=== PATIENT | male | born 1975 | race Caucasian/White ===

== ENCOUNTER → 2017-01-07 | Outpatient (CLI) | payer OTHER ==
[2017-01-07 17:25] LABS: Anion Gap 8 mmol/L; Blood Urea Nitrogen 41 mg/dL (9-20); Calcium 9.8 mg/dL (8.4-10.2); Carbon Dioxide 25 mmol/L (22-30); Chloride 106 mmol/L (98-107); Glucose 89 mg/dL (74-99); Non-African American GFR(MDRD) 52 (>60 ml/min/1.73 sqM); Potassium 4.2 mmol/L (3.5-5.1); Sodium 139 mmol/L (137-145)
== END ==
LOC: LABWHC1 16:42
PROVIDERS: ATTEND Internal Medicine Nephrology
DX: N18.3 Chronic kidney disease, stage 3 (moderate) (principal)
CPT/HCPCS: 36415; 80048

== ENCOUNTER → 2017-03-27 | Outpatient (CLI) | payer OTHER ==
[2017-03-27 08:33] LABS: Basophils % (A) 1 %; CH 30.6; Eosinophils # (A) 0.2 k/uL (0-0.7); Eosinophils % (A) 3 %; HCT 40.3 % (39.0-53.0); HDW 2.83; HGB 14.5 gm/dL (13.0-17.5); Luc # (Auto) 0.14; Luc % (Auto) 3; Lymphocytes # (A) 1.5 k/uL (1.0-4.8); Lymphocytes % (A) 29 %; MCH 31.7 pg (25.0-35.0); MCHC 36.1 g/dL (31.0-37.0); MCV 87.9 fL (80.0-100.0); Mean Platelet Volume 7.5; Monocytes # (A) 0.3 k/uL (0-1.0); Monocytes % (A) 6 %; Neutrophils # (A) 3.1 k/uL (1.3-7.7); Neutrophils % (A) 59 %; RBC 4.59 m/uL (4.30-5.90); RDW 13.9 % (11.5-15.5); WBC 5.2 k/uL (3.8-10.6); WBC (Perox) 5.57
== END | disposition home or self-care (01) ==
LOC: LABWHC1 08:02
PROVIDERS: ATTEND Internal Medicine Nephrology
DX: N18.3 Chronic kidney disease, stage 3 (moderate) (principal)
CPT/HCPCS: 36415; 85025

== ENCOUNTER → 2017-04-09 | Outpatient (CLI) | payer OTHER ==
[2017-04-09 08:37] LABS: Basophils % (A) 1 %; CH 31.2; CHCM 35.7; Eosinophils # (A) 0.1 k/uL (0-0.7); Eosinophils % (A) 3 %; HCT 41.8 % (39.0-53.0); HDW 2.79; HGB 14.6 gm/dL (13.0-17.5); Luc # (Auto) 0.09; Luc % (Auto) 2; Lymphocytes # (A) 1.4 k/uL (1.0-4.8); Lymphocytes % (A) 30 %; MCH 30.7 pg (25.0-35.0); MCV 87.9 fL (80.0-100.0); Mean Platelet Volume 7.3; Monocytes # (A) 0.4 k/uL (0-1.0); Monocytes % (A) 9 %; Neutrophils # (A) 2.6 k/uL (1.3-7.7); Neutrophils % (A) 56 %; RBC 4.76 m/uL (4.30-5.90); RDW 13.8 % (11.5-15.5); WBC 4.5 k/uL (3.8-10.6); WBC (Perox) 4.74
[2017-04-09 08:51] LABS: Appearance,Urine Clear (Clear); Bilirubin,Urine Negative (Negative); Calcium 9.7 mg/dL (8.4-10.2); Glucose,Urine (UA) Negative (Negative); Ketones,Urine Negative (Negative); Leukocyte Esterase,Urine Negative (Negative); Magnesium 1.6 mg/dL (1.6-2.3); Mucus,Urine Rare /hpf; Nitrite,Urine Negative (Negative); PH, Urine 5.5 (5.0-8.0); Particle Count 4158; Potassium 4.4 mmol/L (3.5-5.1); Protein,Urine 2+ (Negative); Specific Gravity,Urine 1.017 (1.001-1.035); Squamous Epithelial Cell,Urine <1 /hpf (0-4); UA Billing (MACRO vs. MICRO) MICRO; Uric Acid 6.4 mg/dL (3.5-8.5); Urobilinogen,Urine <2.0 mg/dL (<2.0); WBC,Urine 1 /hpf (0-5)
== END | disposition home or self-care (01) ==
LOC: LABWHC1 07:54
PROVIDERS: ATTEND Internal Medicine Nephrology
DX: N18.3 Chronic kidney disease, stage 3 (moderate) (principal); N05.1 Unspecified nephritic syndrome with focal and segmental glomerular lesions; R80.9 Proteinuria, unspecified; E78.5 Hyperlipidemia, unspecified
CPT/HCPCS: 36415; 80048; 80061; 80158; 81001; 81050; 83735; 84156; 84550; 85025

== ENCOUNTER → 2017-06-09 | Outpatient (CLI) | payer OTHER ==
[2017-06-09 07:44] LABS: Basophils # (A) 0.1 k/uL (0-0.2); Basophils % (A) 1 %; CH 31.2; Eosinophils # (A) 0.1 k/uL (0-0.7); Eosinophils % (A) 2 %; HCT 44.1 % (39.0-53.0); HGB 14.7 gm/dL (13.0-17.5); Luc # (Auto) 0.11; Luc % (Auto) 2; Lymphocytes # (A) 1.3 k/uL (1.0-4.8); Lymphocytes % (A) 21 %; MCH 30.8 pg (25.0-35.0); MCHC 33.4 g/dL (31.0-37.0); MCV 92.1 fL (80.0-100.0); Mean Platelet Volume 7.3; Monocytes # (A) 0.4 k/uL (0-1.0); Monocytes % (A) 7 %; Neutrophils # (A) 4.3 k/uL (1.3-7.7); Neutrophils % (A) 68 %; RBC 4.79 m/uL (4.30-5.90); WBC 6.2 k/uL (3.8-10.6); WBC (Perox) 6.69
[2017-06-09 07:55] LABS: Appearance,Urine Clear (Clear); Bilirubin,Urine Negative (Negative); Glucose,Urine (UA) Negative (Negative); Ketones,Urine Negative (Negative); Leukocyte Esterase,Urine Negative (Negative); Mucus,Urine Rare /hpf; Nitrite,Urine Negative (Negative); PH, Urine 5.5 (5.0-8.0); Particle Count 2017; Protein,Urine 2+ (Negative); Specific Gravity,Urine 1.017 (1.001-1.035); UA Billing (MACRO vs. MICRO) MICRO; Urobilinogen,Urine <2.0 mg/dL (<2.0); WBC,Urine 1 /hpf (0-5)
[2017-06-09 08:24] LABS: Calcium 9.7 mg/dL (8.4-10.2); Magnesium 1.6 mg/dL (1.6-2.3); Potassium 4.6 mmol/L (3.5-5.1); Uric Acid 5.5 mg/dL (3.5-8.5)
[2017-06-09 16:04] LABS: 24-hr Urine Specific Gravity 1.02 (1.001-1.035)
== END | disposition home or self-care (01) ==
LOC: LABWHC1 06:38
PROVIDERS: ATTEND Nurse Practitioner Family
DX: N18.3 Chronic kidney disease, stage 3 (moderate) (principal); N64.9 Disorder of breast, unspecified; M10.9 Gout, unspecified; N39.0 Urinary tract infection, site not specified; R80.9 Proteinuria, unspecified
CPT/HCPCS: 36415; 80048; 81001; 81050; 83735; 84156; 84550; 85025

== ENCOUNTER → 2018-02-05 | Outpatient (CLI) | payer BC ==
[2018-02-05 16:57] LABS: Albumin 3.9 g/dL (3.5-5.0); Calcium 9.6 mg/dL (8.4-10.2); Phosphorus 3.8 mg/dL (2.5-4.5); Potassium 5.1 mmol/L (3.5-5.1)
== END | disposition home or self-care (01) ==
LOC: LABWHC1 16:25
PROVIDERS: ATTEND Internal Medicine
DX: N18.3 Chronic kidney disease, stage 3 (moderate) (principal)
CPT/HCPCS: 36415; 80069; 82043; 82570; 84156

== ENCOUNTER → 2019-10-12 | Outpatient (CLI) | payer BC ==
[2019-10-12 10:34] LABS: HCT 40.5 % (39.0-53.0); HGB 13.1 gm/dL (13.0-17.5); MCHC 32.4 g/dL (31.0-37.0); MCV 89.4 fL (80.0-100.0); Mean Platelet Volume 8.3; Platelet Count 210 k/uL (150-450); RBC 4.52 m/uL (4.30-5.90); RDW 13.5 % (11.5-15.5); WBC 6.2 k/uL (3.8-10.6)
[2019-10-12 17:31] LABS: % Iron Saturation 21.07 (15.00-50.00); Albumin 3.8 g/dL (3.80-4.90); Anion Gap 6.6 mmol/L (4.00-12.00); BUN/Creat Ratio 19.41 Ratio (12.00-20.00); Calcium 9.2 mg/dL (8.7-10.3); Carbon Dioxide 27.4 mmol/L (21.6-31.8); Chol/HDL Ratio 2.76; LDL Cholesterol,Calculated 80.6 mg/dL (0.0-131.0); Non-African American GFR(CKD) 48.3 (60.0-200.0); Phosphorus 3.2 mg/dL (2.4-5.1); VLDL Calculation 16.4 mg/dL (5.00-40.00)
[2019-10-12 17:41] LABS: Ferritin 471.1 ng/mL (22.0-322.0)
== END | disposition home or self-care (01) ==
LOC: LABWHC1 09:10
PROVIDERS: ATTEND Internal Medicine
DX: N18.3 Chronic kidney disease, stage 3 (moderate) (principal)
CPT/HCPCS: 36415; 80061; 80069; 82728; 83540; 83550; 85027

== ENCOUNTER 2020-05-14 17:57 | Emergency (ER) | payer BC ==
[2020-05-14 18:10] VITALS: PULSE 90; RESP 18
--- NOTE | 2020-05-14 19:47 | XR ---
EXAMINATION TYPE: XR shoulder complete LT DATE OF EXAM: 05/14/2020 COMPARISON: NONE HISTORY: Shoulder pain TECHNIQUE: 3 views FINDINGS: I see no fracture nor dislocation. There is slight widening of the AC joint space that luz ures 8.5 mm.. There is no sign of pathologic soft tissue calcification. IMPRESSION: No fracture seen. Slight widening of the AC joint space could relate to some ligamentous tear.
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
[2020-05-14] MEDS ORDERED: ACET/COD 300 MG/30 MG STARTER PACK 6 TAB BTL PO STA (20:07)
[2020-05-14 20:33] VITALS: BP 152/78; TEMP 98.6
== END 2020-05-14 20:31 | disposition home or self-care (01) ==
LOC: EC 17:57
DX: S49.92XA Unspecified injury of left shoulder and upper arm, initial encounter (principal); I10 Essential (primary) hypertension; Z79.899 Other long term (current) drug therapy; Z79.51 Long term (current) use of inhaled steroids; V86.56XA Driver of dirt bike or motor/cross bike injured in nontraffic accident, initial encounter; Y93.55 Activity, bike riding; Y92.410 Unspecified street and highway as the place of occurrence of the external cause
CPT/HCPCS: 73030; 99283; L3670

== ENCOUNTER → 2020-06-05 | Outpatient (CLI) | payer BC ==
[2020-06-05 15:04] LABS: African American GFR (CKD) 30.4 (60.0-200.0); Albumin 4.2 g/dL (3.80-4.90); Anion Gap 8.3 mmol/L (4.00-12.00); BUN/Creat Ratio 24.29 Ratio (12.00-20.00); Calcium 9.8 mg/dL (8.7-10.3); Carbon Dioxide 22.7 mmol/L (21.6-31.8); Chol/HDL Ratio 2.63; LDL Cholesterol,Calculated 84.6 mg/dL (0.0-131.0); Non-African American GFR(CKD) 26.2 (60.0-200.0); Phosphorus 3.9 mg/dL (2.4-5.1); Potassium 5.2 mmol/L (3.5-5.5); VLDL Calculation 11.4 mg/dL (5.00-40.00)
== END | disposition home or self-care (01) ==
LOC: LABWHC1 08:33
PROVIDERS: ATTEND Internal Medicine
DX: N18.3 Chronic kidney disease, stage 3 (moderate) (principal)
CPT/HCPCS: 36415; 80061; 80069

== ENCOUNTER 2021-02-21 23:19 | Emergency (ER) | payer BC ==
[2021-02-21 23:30] VITALS: TEMP 99.1
--- NOTE | 2021-02-22 00:17 | ED ---
General Adult HPI - General Chief complaint: Abdominal Pain Stated complaint: Abdominal pain, fever Time Seen by Provider: 02/21/21 23:40 Source: patient, family, RN notes reviewed Mode of arrival: ambulatory Limitations: no limitations - History of Present Illness Initial comments: Patient is a 46-year-old male that presents to emergency room complaining of suprapubic abdominal discomfort and some discomfort on urination. He notes that he's had UTIs in the past and this feels very similar. He notes that he does have chronic kidney disease and is following up with his night time babysitter at [facility] and is trying to get a transplant list at this time. He notes that he drink plenty of fluids throughout the day. He notes that he is able to urinate but not as much fiber as he usually does. He denied any testicle pain or swelling. He was in no apparent distress or pain while sitting in a chair during the exam and interview. He noted the signatures were called with sitting in the bed. She denied any chest pain shortness of breath headache nausea vomiting diarrhea constipation fever fatigue chills. - Related Data Home Medications Medication Instructions Recorded Confirmed Acetaminophen Tab [Tylenol Tab] 500 mg PO Q6H PRN 05/09/16 05/09/16 Allopurinol [Zyloprim] 300 mg PO QAM 05/09/16 05/09/16 Ascorbic Acid [Vitamin C] 1,000 mg PO DAILY 05/09/16 05/09/16 Ergocalciferol [Vitamin D2] 50,000 unit PO Q30D 05/09/16 05/09/16 FLUoxetine HCL [PROzac] 10 mg PO DAILY 05/09/16 05/09/16 Losartan Potassium [Cozaar] 50 mg PO QAM 05/09/16 05/09/16 Tamsulosin [Flomax] 0.4 mg PO HS 05/09/16 05/09/16 predniSONE 50 mg PO DAILY 05/09/16 05/09/16 Previous Rx's Medication Instructions Recorded Ciprofloxacin HCl [Cipro] 500 mg PO Q12HR #20 tablet 05/09/16 Ciprofloxacin HCl [Cipro] 500 mg PO Q12HR #10 tablet 02/22/21 Allergies Allergy/AdvReac Type Severity Reaction Status Date / Time lisinopril Allergy Cough Verified 02/21/21 23:30 Review of Systems ROS Statement: Those systems with pertinent positive or pertinent negative responses have been documented in the HPI. ROS Other: All systems not noted in ROS Statement are negative. Past Medical History Past Medical History: Hypertension Additional Past Medical History / Comment(s): renal failure stage 3 History of Any Multi-Drug Resistant Organisms: None Reported Additional Past Surgical History / Comment(s): kidney biopsy Past Psychological History: No Psychological Hx Reported Smoking Status: Never smoker Past Alcohol Use History: None Reported Past Drug Use History: None Reported General Exam Limitations: no limitations General appearance: alert, in no apparent distress Head exam: Present: atraumatic, normocephalic, normal inspection Eye exam: Present: normal appearance, PERRL, EOMI. Absent: scleral icterus, conjunctival injection, periorbital swelling Neck exam: Present: normal inspection Respiratory exam: Present: normal lung sounds bilaterally. Absent: respiratory distress, wheezes, rales, rhonchi, stridor Cardiovascular Exam: Present: regular rate, normal rhythm, normal heart sounds. Absent: systolic murmur, diastolic murmur, rubs, gallop, clicks GI/Abdominal exam: Present: soft, tenderness (In the suprapubic region.), normal bowel sounds. Absent: distended, guarding, rebound, rigid exam: Present: normal inspection Extremities exam: Present: normal inspection, full ROM, normal capillary refill. Absent: tenderness, pedal edema, joint swelling, calf tenderness Neurological exam: Present: alert, oriented X3 Psychiatric exam: Present: normal affect, normal mood Skin exam: Present: warm, dry, intact, normal color. Absent: rash Course Vital Signs 02/21/21 23:25 Temperature 99.1 F Pulse Rate 82 Respiratory 20 Rate Blood Pressure 164/95 O2 Sat by Pulse 98 Oximetry Medical Decision Making - Medical Decision Making 46-year-old male complaining of discomfort on urination for the last several hours. Labs, bladder scan ordered. Labs unremarkable, similar to baseline. Urinalysis unremarkable. Case discussed with Dr. Self him a patient can discharge home with follow-up to primary care and specialist as planned. - Lab Data Result diagrams: 02/22/21 00:28 02/22/21 00:28 Lab Results 02/22/21 02/22/21 02/22/21 Range/Units 00:28 00:28 00:28 WBC 9.8 (3.8-10.6) k/uL RBC 4.15 L (4.30-5.90) m/uL Hgb 12.9 L (13.0-17.5) gm/dL Hct 37.1 L (39.0-53.0) % MCV 89.5 (80.0-100.0) fL MCH 31.0 (25.0-35.0) pg MCHC 34.6 (31.0-37.0) g/dL RDW 13.1 (11.5-15.5) % Plt Count 179 (150-450) k/uL MPV 7.8 Neutrophils % 78 % Lymphocytes % 11 % Monocytes % 7 % Eosinophils % 2 % Basophils % 1 % Neutrophils # 7.7 (1.3-7.7) k/uL Lymphocytes # 1.0 (1.0-4.8) k/uL Monocytes # 0.7 (0-1.0) k/uL Eosinophils # 0.2 (0-0.7) k/uL Basophils # 0.0 (0-0.2) k/uL Sodium 136 L (137-145) mmol/L Potassium 4.5 (3.5-5.1) mmol/L Chloride 111 H (98-107) mmol/L Carbon Dioxide 16 L (22-30) mmol/L Anion Gap 9 mmol/L BUN 66 H (9-20) mg/dL Creatinine 3.14 H (0.66-1.25) mg/dL Est GFR (CKD-EPI)AfAm 26 (>60 ml/min/1.73 sqM) Est GFR (CKD-EPI)NonAf 23 (>60 ml/min/1.73 sqM) Glucose 104 H (74-99) mg/dL Calcium 9.1 (8.4-10.2) mg/dL Total Bilirubin 0.2 (0.2-1.3) mg/dL AST 27 (17-59) U/L ALT 25 (4-49) U/L Alkaline Phosphatase 118 (38-126) U/L Total Protein 6.0 L (6.3-8.2) g/dL Albumin 3.7 (3.5-5.0) g/dL Urine Color Light Yellow Urine Appearance Clear (Clear) Urine pH 6.0 (5.0-8.0) Ur Specific [place] 1.016 (1.001-1.035) Urine Protein 3+ H (Negative) Urine Glucose (UA) Negative (Negative) Urine Ketones Negative (Negative) Urine Blood Trace H (Negative) Urine Nitrite Negative (Negative) Urine Bilirubin Negative (Negative) Urine Urobilinogen <2.0 (<2.0) mg/dL Ur Leukocyte Esterase Negative (Negative) Urine RBC 1 (0-5) /hpf Urine WBC <1 (0-5) /hpf Amorphous Sediment Rare H (None) /hpf Hyaline Casts 7 H (0-2) /lpf Urine Mucus Rare H (None) /hpf Disposition Clinical Impression: Abdominal pain, Dysuria Disposition: HOME SELF-CARE Condition: Stable Instructions (If sedation given, give patient instructions): Abdominal Pain (ED), Dysuria (ED) Additional Instructions: Please return to the Emergency Department if symptoms worsen or any other concerns. Follow-up with primary care and other specialist as planned. Take antibiotics as prescribed until complete. Increase oral fluids. Is patient prescribed a controlled substance at d/c from ED?: No Referrals: Abdifatah Vitale MD [Primary Care Provider] - 1-2 days Time of Disposition: 01:29
[2021-02-22 00:41] LABS: Basophils % (A) 1 %; Eosinophils # (A) 0.2 k/uL (0-0.7); Eosinophils % (A) 2 %; HCT 37.1 % (39.0-53.0); HGB 12.9 gm/dL (13.0-17.5); Lymphocytes % (A) 11 %; MCHC 34.6 g/dL (31.0-37.0); MCV 89.5 fL (80.0-100.0); Mean Platelet Volume 7.8; Monocytes # (A) 0.7 k/uL (0-1.0); Monocytes % (A) 7 %; Neutrophils # (A) 7.7 k/uL (1.3-7.7); Neutrophils % (A) 78 %; Platelet Count 179 k/uL (150-450); RBC 4.15 m/uL (4.30-5.90); RDW 13.1 % (11.5-15.5); WBC 9.8 k/uL (3.8-10.6)
[2021-02-22 00:54] LABS: Amorphous Sediment,Urine Rare /hpf; Appearance,Urine Clear (Clear); Bilirubin,Urine Negative (Negative); Blood,Urine Trace (Negative); Color,Urine Light Yellow; Glucose,Urine (UA) Negative (Negative); Hyaline Casts,Urine 7 /lpf (0-2); Ketones,Urine Negative (Negative); Leukocyte Esterase,Urine Negative (Negative); Mucus,Urine Rare /hpf; Nitrite,Urine Negative (Negative); Protein,Urine 3+ (Negative); RBC,Urine 1 /hpf (0-5); Specific Gravity,Urine 1.016 (1.001-1.035); Urobilinogen,Urine <2.0 mg/dL (<2.0); WBC,Urine <1 /hpf (0-5)
[2021-02-22 01:03] LABS: Albumin 3.7 g/dL (3.5-5.0); Calcium 9.1 mg/dL (8.4-10.2); Potassium 4.5 mmol/L (3.5-5.1); Total Bilirubin 0.2 mg/dL (0.2-1.3)
[2021-02-22 01:45] VITALS: BP 153/92; PULSE 63; RESP 16
== END 2021-02-22 01:45 | disposition home or self-care (01) ==
LOC: EC 23:19
DX: R10.30 Lower abdominal pain, unspecified (principal); R30.0 Dysuria; I12.9 Hypertensive chronic kidney disease with stage 1 through stage 4 chronic kidney disease, or unspecified chronic kidney disease; N18.30 Chronic kidney disease, stage 3 unspecified
CPT/HCPCS: 36415; 80053; 81001; 85025; 99284

== ENCOUNTER → 2021-05-30 | Outpatient (CLI) | payer BC ==
[~2021-05-30] MED LIST: REGADENOSON 0.4 MG/5 ML SYRINGE IV PRN
--- NOTE | 2021-05-30 13:41 | EST ---
EXERCISE STRESS AGE: 46 SEX: M HT: 6'4" WT: 255 lbs. PROTOCOL: Lexiscan STAGE: NA DURATION OF EXERCISE: NA HEART RATE REST: 56 BLOOD PRESSURE REST: 155/75 MAXIMUM HEART RATE ACHIEVED: 80 MAXIMUM BLOOD PRESSURE: 167/72 85% MPHR: 149 100% MPHR: 175 METS: NA INDICATIONS: Pre op CLINICAL INFORMATION: Baseline rhythm is sinus mechanism, rate 56, normal axis and intervals, normal echocardiogram. Baseline blood pressure 155/75 mmHg. Patient received an injection of Lexiscan. Electrocardiographic monitoring revealed no evidence of diagnostic ischemic ST deviation. Cardiolite was injected per protocol. CONCLUSION: 1. Nondiagnostic electrocardiographic stress testing. 2. Nuclear images will be reported separately. MMODL / IJN: [id number] /
--- NOTE | 2021-05-30 15:44 | NM ---
EXAMINATION TYPE: NM stress lexiscan cardiolite DATE OF EXAM: 05/30/2021 COMPARISON: NONE HISTORY: 46-year-old male preoperative consultation, hypertension, hypercholesterolemia, family histo ry of heart disease, 20 pack year history of smoking. TECHNIQUE: After the intravenous administration of 9.57 mCi Tc 99m Sestamibi - Cardiolite resting SP ECT images acquired 45 minutes post injection. The patient received 0.4mg Lexiscan, 24.7 mCi Tc 99m Sestamibi - Stress images obtained [address] injection FINDINGS: Review of stress and rest SPECT images demonstrates prominent fixed areas of perfusion defect into ea rlier in the inferior wall by small area of reversibility along the cardiac apex. Gated analysis show s normal wall motion with an estimated left ventricular ejection fraction of 58 %. TID is calculated at 1.12, upper limits of normal. IMPRESSION: 1. Small area of apical reversibility. Further evaluation has clinically indicated. 2. Prominent areas of fixed defect along the anterior and inferior tinoco may relate to attenuation ar tifacts. Correlate for any history of prior infarcts. 3. Overall LVEF is normal at 58%.
--- NOTE | 2021-05-31 11:31 | ECHOF ---
Referral Reason: MEASUREMENTS -------- HEIGHT: 188.0 cm WEIGHT: 115.7 kg BP: RVIDd: 3.6 cm (< 3.3) IVSd: 1.2 cm (0.6 - 1.1) LVIDd: 4.7 cm (3.9 - 5.3) LVPWd: 1.6 cm (0.6 - 1.1) IVSs: 1.7 cm LVIDs: 2.8 cm LVPWs: 2.5 cm LA Diam: 4.1 cm (2.7 - 3.8) LAESV Index (A-L): 34.23 ml/m Ao Diam: 3.7 cm (2.0 - 3.7) AV Cusp: 2.6 cm (1.5 - 2.6) LA Diam: 3.8 cm (2.7 - 3.8) MV EXCURSION: 24.729 mm (> 18.000) MV EF SLOPE: 154 mm/s (70 - 150) EPSS: 0.9 cm MV E Daniel: 0.90 m/s MV DecT: 257 ms MV A Daniel: 0.62 m/s MV E/A Ratio: 1.45 RAP: 15.00 mmHg RVSP: 36.04 mmHg FINDINGS -------- Sinus rhythm. This was a technically good study. The left ventricular size is normal. There is mild concentric left ventricular hypertrophy. Overa ll left ventricular systolic function is normal with, an EF between 55 - 60 %. The diastolic fillin g pattern is normal for the age of the patient 7.25. The right ventricle is normal in size. LA is moderately dilated 34-39 ml/m2 The right atrial size is normal. Interatrial and interventricular septum intact. The aortic valve is trileaflet, and appears structurally normal. No aortic stenosis or regurgitation. The mitral valve is normal. There is trace to mild mitral regurgitation. The tricuspid valve appears structurally normal. Mild tricuspid regurgitation present. There is m ild pulmonary hypertension. The right ventricular systolic pressure, as measured by Doppler, is 36. 04mmHg. There is no pulmonic regurgitation present. The aortic root size is normal. The inferior vena cava is mildly dilated. There is no pericardial effusion. CONCLUSIONS -------- 1. There is mild concentric left ventricular hypertrophy. 2. Overall left ventricular systolic function is normal with, an EF between 55 - 60 %. 3. LA is moderately dilated 34-39 ml/m2 4. The aortic valve is trileaflet, and appears structurally normal. No aortic stenosis or regurgitati on. 5. There is trace to mild mitral regurgitation. 6. Mild tricuspid regurgitation present. 7. There is mild pulmonary hypertension. 8. The inferior vena cava is mildly dilated. 9. There is no pericardial effusion. CONTAINERS SALES REPRESENTATIVE: Domi Marquez RDCS
== END | disposition home or self-care (01) ==
LOC: RADNMMAIN 07:46
PROVIDERS: ATTEND Internal Medicine
DX: Z01.818 Encounter for other preprocedural examination (principal); I10 Essential (primary) hypertension
CPT/HCPCS: 93017; 93306; 78452; A9500; J2785

== ENCOUNTER → 2021-07-11 | Outpatient (CLI) | payer BC ==
[2021-07-11 12:02] LABS: Creatinine,Urine Random 79.4 mg/dL
[2021-07-11 12:11] LABS: Protein/Creatinine Ratio,Urine 6.272
--- NOTE | 2021-07-11 13:59 | XR ---
EXAMINATION TYPE: XR chest 2V DATE OF EXAM: 07/11/2021 COMPARISON: None HISTORY: 46-year-old male Z01.818 TECHNIQUE: Frontal and lateral views FINDINGS: The cardiomediastinal silhouette, aorta, and pulmonary vasculature are within normal limits. Lungs an d pleural spaces are clear. IMPRESSION: No acute cardiopulmonary process.
[2021-07-11 18:42] LABS: Hepatitis B Core IgM Nonreactive (Nonreactive); Hepatitis B Surface Antibody Reactive (Nonreactive); Hepatitis B Surface Antigen Nonreactive (Nonreactive); Hepatitis C IgG Antibody Nonreactive (Nonreactive)
[2021-07-11 18:47] LABS: AST 28 U/L (14-35); African American GFR (CKD) 25.7 (60.0-200.0); Albumin 4.1 g/dL (3.8-4.9); Alkaline Phosphatase 101 U/L (41-126); BUN/Creat Ratio 18.78 Ratio (12.00-20.00); Bilirubin, Conjugated <0.20 mg/dL (0.20-0.40); Blood Urea Nitrogen 60.1 mg/dL (9.0-27.0); Calcium 9.2 mg/dL (8.7-10.3); Carbon Dioxide 17.4 mmol/L (21.6-31.8); Chloride 110 mmol/L (96-109); Glucose 93 mg/dL (70-110); Non-African American GFR(CKD) 22.2 (60.0-200.0); Potassium 5.1 mmol/L (3.5-5.5); Sodium 140 mmol/L (135-145)
[2021-07-11 18:48] LABS: ALT 31 U/L (10-49)
[2021-07-11 21:11] LABS: Basophils # (A) 0.05 X 10*3/uL (0.00-0.10); Eosinophils % (A) 1.9 %; HCT 35.9 % (39.6-50.0); HGB 11.6 g/dL (13.0-17.0); Lymphocytes % (A) 15.3 %; MCH 30.3 pg (27.0-32.0); MCHC 32.3 g/dL (32.0-37.0); MCV 93.7 fL (80.0-97.0); Mean Platelet Volume 10.5 fL (9.5-12.2); Monocytes # (A) 0.37 X 10*3/uL (0.20-1.00); Monocytes % (A) 7.1 %; Neutrophils # (A) 3.89 X 10*3/uL (1.80-7.70); Neutrophils % (A) 74.3 %; Platelet Count 170 X 10*3/uL (140-440); RBC 3.83 X 10*6/uL (4.40-5.60); RDW 13.4 % (11.5-14.5); WBC 5.23 X 10*3/uL (4.50-10.00)
[2021-07-12 02:58] LABS: Mumps Virus IgG Ab Interp POSITIVE (NEGATIVE); Mumps Virus IgG Antibody 1.3 AI
[2021-07-12 04:31] LABS: Toxoplasma Antibody (IgG) <3.0 IU/mL (<7.2)
[2021-07-13 07:05] LABS: Herpes simplex I and/or II IgM 0.16 INDEX (<=0.90); Herpes simplex IgG I Ab 0.07 (< or = 0.90); Herpes simplex IgG II Ab 0.62 (< or = 0.90)
[2021-07-13 20:04] LABS: HIV 2 AB Non-Reactive (Non-Reactive); HIV AB P24 Non-Reactive (Non-Reactive); HIV P24 AG Non-Reactive (Non-Reactive)
== END | disposition home or self-care (01) ==
LOC: LABWHC1 09:58
PROVIDERS: ATTEND Internal Medicine
DX: Z01.818 Encounter for other preprocedural examination (principal)
CPT/HCPCS: 36415; 71046; 80069; 80076; 82570; 82784; 83036; 83970; 84156; 84443; 85025; 86644; 86694; 86695; 86696; 86705; 86706; 86735; 86765; 86777; 86787; 86803; 86900; 86901; 87340; 87390

== ENCOUNTER → 2021-08-22 | Outpatient (CLI) | payer BC | END | disposition home or self-care (01) | LOC: LABWHC1 09:51 | PROVIDERS: ATTEND Internal Medicine Nephrology | DX: Z01.812 Encounter for preprocedural laboratory examination (principal) | CPT/HCPCS: 36415; 86850; 86900; 86901 ==

== ENCOUNTER 2022-03-12 19:03 | Emergency (ER) | payer BC ==
[2022-03-12 19:23] VITALS: PULSE 86
--- NOTE | 2022-03-12 20:24 | ED ---
General Adult HPI - General Chief complaint: Fever Stated complaint: fever Time Seen by Provider: 03/12/22 20:00 Source: patient, RN notes reviewed, old records reviewed Mode of arrival: ambulatory Limitations: no limitations - History of Present Illness Initial comments: 47-year-old male presenting for evaluation of fever, nasal congestion and mild cough. Symptoms 7 present for the past 24 hours. He has been taking Tylenol which has reduced his fever but not eliminated it. He has a history of chronic kidney disease stage IV. He denies any urinary symptoms. He had some vomiting earlier today but has been able to keep liquids down since then. No specific pain complaints. He has had one vaccine against coronavirus. - Related Data Home Medications Medication Instructions Recorded Confirmed Acetaminophen Tab [Tylenol Tab] 500 mg PO Q6H PRN 05/09/16 05/09/16 Ascorbic Acid [Vitamin C] 1,000 mg PO DAILY 05/09/16 05/09/16 Ergocalciferol [Vitamin D2] 50,000 unit PO Q30D 05/09/16 05/09/16 FLUoxetine HCL [PROzac] 10 mg PO DAILY 05/09/16 05/09/16 Losartan Potassium [Cozaar] 50 mg PO QAM 05/09/16 05/09/16 Tamsulosin [Flomax] 0.4 mg PO HS 05/09/16 05/09/16 allopurinoL [Zyloprim] 300 mg PO QAM 05/09/16 05/09/16 predniSONE 50 mg PO DAILY 05/09/16 05/09/16 Previous Rx's Medication Instructions Recorded Ciprofloxacin HCl [Cipro] 500 mg PO Q12HR #20 tablet 05/09/16 Ciprofloxacin HCl [Cipro] 500 mg PO Q12HR #10 tablet 02/22/21 Allergies Allergy/AdvReac Type Severity Reaction Status Date / Time lisinopril Allergy Cough Verified 03/12/22 19:23 Review of Systems ROS Statement: Those systems with pertinent positive or pertinent negative responses have been documented in the HPI. ROS Other: All systems not noted in ROS Statement are negative. Past Medical History Past Medical History: Hypertension Additional Past Medical History / Comment(s): renal failure stage 4 History of Any Multi-Drug Resistant Organisms: None Reported Additional Past Surgical History / Comment(s): kidney biopsy Past Psychological History: No Psychological Hx Reported Smoking Status: Never smoker Past Alcohol Use History: None Reported Past Drug Use History: None Reported General Exam Limitations: no limitations General appearance: alert, in no apparent distress Head exam: Present: atraumatic, normocephalic Eye exam: Present: normal appearance, PERRL ENT exam: Present: normal exam, mucous membranes moist Neck exam: Present: normal inspection. Absent: tenderness, meningismus Respiratory exam: Present: normal lung sounds bilaterally. Absent: respiratory distress, wheezes Cardiovascular Exam: Present: regular rate, normal rhythm GI/Abdominal exam: Present: soft. Absent: distended, tenderness, guarding Extremities exam: Present: normal inspection, normal capillary refill. Absent: pedal edema, calf tenderness Neurological exam: Present: alert, oriented X3, CN II-XII intact. Absent: motor sensory deficit Psychiatric exam: Present: normal affect, normal mood Skin exam: Present: warm, dry, intact. Absent: cyanosis, diaphoretic Course Vital Signs 03/12/22 19:18 Temperature 101.2 F H Pulse Rate 86 Respiratory 20 Rate Blood Pressure 142/88 O2 Sat by Pulse 96 Oximetry Medical Decision Making - Medical Decision Making 47 -year-old presenting with fever, cough, congestion. Patient does test positive for coronavirus in the emergency department. He is afebrile with otherwise stable vitals. No dyspnea. No hypoxia. He is a candidate for monoclonal antibodies. He is transfused in the emergency department. He is instructed to take vitamin C, vitamin D and zinc. He can take Tylenol for fever. He should return with worsening or changing symptoms. - Lab Data Lab Results 03/12/22 Range/Units 19:25 Coronavirus (PCR) Detected A (Not Detectd) Disposition Clinical Impression: COVID-19 Disposition: HOME SELF-CARE Condition: Fair Instructions (If sedation given, give patient instructions): COVID-19 (Coronavirus Disease 2019) (ED) Is patient prescribed a controlled substance at d/c from ED?: No Referrals: Abdifatah Vitale MD [Primary Care Provider] - 1-2 days Time of Disposition: 21:10
[2022-03-12 22:17] VITALS: RESP 16
[2022-03-12] MEDS ORDERED: BEBTELOVIMAB (EUA) 175 MG/2 ML VIAL IV ONE (22:30)
[2022-03-12 23:01] VITALS: BP 147/88; TEMP 101.6
== END 2022-03-12 23:01 | disposition home or self-care (01) ==
LOC: EC 19:03
DX: U07.1 COVID-19 (principal); I10 Essential (primary) hypertension; Z88.8 Allergy status to other drugs, medicaments and biological substances
CPT/HCPCS: 87635; 99284; Q0222

== ENCOUNTER → 2022-05-31 | Outpatient (CLI) | payer BC ==
--- NOTE | 2022-05-31 15:46 | XR ---
EXAMINATION TYPE: XR chest 2V DATE OF EXAM: 05/31/2022 3:39 PM COMPARISON: Chest radiographs from 07/11/2021. TECHNIQUE: XR chest 2V Frontal and lateral views of the chest. CLINICAL INDICATION:Male, 47 years old with history of N184; FINDINGS: Lungs/Pleura: There is no evidence of pleural effusion, focal consolidation, or pneumothorax. Pulmonary vascularity: Unremarkable. Heart/mediastinum: Cardiomediastinal silhouette is unremarkable. Musculoskeletal: No acute osseous pathology. IMPRESSION: No acute cardiopulmonary disease/process.
[2022-05-31 22:56] LABS: HCT 26.4 % (39.6-50.0); HGB 9.1 g/dL (13.0-17.0); MCHC 34.5 g/dL (32.0-37.0); Mean Platelet Volume 10.7 fL (9.5-12.2); NRBC Per 100 WBC 0 /100 WBCS (0.0-0.0); Platelet Count 153 X 10*3/uL (140-440); RBC 2.84 X 10*6/uL (4.40-5.60); RDW 13.4 % (11.5-14.5); WBC 5.91 X 10*3/uL (4.50-10.00)
[2022-06-01] LABS: African American GFR (CKD) 11.9 (60.0-200.0); Albumin/Globulin Ratio 2.22 (1.60-3.17); Anion Gap 15.7 mmol/L (10.00-18.00); BUN/Creat Ratio 14.08 Ratio (12.00-20.00); Blood Urea Nitrogen 84.5 mg/dL (9.0-27.0); Calcium 8.7 mg/dL (8.7-10.3); Carbon Dioxide 15.3 mmol/L (20.0-27.5); Globulin 1.8 g/dL (1.6-3.3); Non-African American GFR(CKD) 10.3 (60.0-200.0); Phosphorus 6.9 mg/dL (2.4-5.1); Potassium 4.8 mmol/L (3.5-5.5); Total Bilirubin 0.3 mg/dL (0.30-1.20); Total Protein 5.8 g/dL (6.2-8.2)
[2022-06-01 00:08] LABS: Hepatitis A Antibody IgM Nonreactive (Nonreactive); Hepatitis B Core IgM Nonreactive (Nonreactive); Hepatitis B Surface Antigen Nonreactive (Nonreactive); Hepatitis C IgG Antibody Nonreactive (Nonreactive)
== END | disposition home or self-care (01) ==
LOC: RADXRMAIN 11:14
PROVIDERS: ATTEND Internal Medicine
DX: N18.4 Chronic kidney disease, stage 4 (severe) (principal)
CPT/HCPCS: 71046; 80053; 80069; 80074; 85027

== ENCOUNTER 2022-06-20 11:16 | Day surgery (SDC) | payer BC ==
[2022-06-19 10:29] VITALS: BMI 30.4
[~2022-06-20 11:16] MED LIST changes: +DEXAMETHASONE SOD PHOSPHATE 4 MG/ML 1 ML VIAL IV ONE; +LACTATED RINGERS 1,000 ML IV SCH; +ONDANSETRON 4 MG/2 ML VIAL IVP ONE; -REGADENOSON 0.4 MG/5 ML SYRINGE IV PRN
[2022-06-20] MEDS ORDERED: MIDAZOLAM 2 MG/2 ML VIAL IVP ONE (12:41)
[2022-06-20] MEDS ORDERED: ONDANSETRON 4 MG/2 ML VIAL IVP ONE (12:44)
[2022-06-20] MEDS ORDERED: DEXAMETHASONE SOD PHOSPHATE 4 MG/ML 1 ML VIAL IVP ONE (12:45)
[2022-06-20] MEDS ORDERED: HEPARIN SODIUM,PORCINE/PF 5,000 UNIT/0.5 ML SYRINGE SQ STA (12:52)
[2022-06-20] MEDS ORDERED: MIDAZOLAM 2 MG/2 ML VIAL ONE (12:54)
[2022-06-20] MEDS ORDERED: HEPARIN SODIUM,PORCINE/PF 5,000 UNIT/0.5 ML SYRINGE SQ ONE (12:54)
[2022-06-20] MEDS ORDERED: PROPOFOL 10 MG/ML 20 ML VIAL IV ONE (12:54)
[2022-06-20] MEDS ORDERED: fentaNYL (PF) 50 MCG/ML 2 ML AMP ONE (12:54)
[2022-06-20] MEDS ORDERED: ePHEDrine 50 MG/ML 1 ML VIAL ONE (12:54)
[2022-06-20] MEDS ORDERED: LIDOCAINE 2% INJ 20 MG/ML (2 ML VIAL) ONE (12:54)
[2022-06-20] MEDS ORDERED: PHENYLEPHRINE-0.9% NACL SYG 1,000 MCG/10 ML SYRINGE ONE (12:54)
[2022-06-20] MEDS ORDERED: MINERAL OIL 1 APPLIC/ML OIL MISCELLANE ONE (12:58)
[2022-06-20] MEDS ORDERED: BUPIVACAINE (PF) 0.25% 30 ML VIAL SQ ONE (12:58)
[2022-06-20] MEDS ORDERED: NALOXONE 0.4 MG/ML 1 ML VIAL IV PRN (13:56)
[2022-06-20] MEDS ORDERED: Acetaminophen-Codeine 300-30mg TAB PO PRN (13:58)
--- NOTE | 2022-06-20 13:58 | P.OP ---
Date of Procedure: 06/20/22 Procedure(s) Performed: PREOPERATIVE DIAGNOSIS: Renal failure POSTOPERATIVE DIAGNOSIS: Same PROCEDURE: Peritoneal dialysis catheter insertion SURGEON: Ryan EBL: 5 mL ANESTHESIA: General COMPLICATIONS: None OPERATIVE PROCEDURE: The patient was placed in the operative table in the supine position. The abdomen was prepped and draped in usual sterile fashion. A small vertical incision was made in the left periumbilical location. Dissection down through the subcutaneous tissues took place using electrocautery. The anterior rectus was divided vertically using the scalpel. The rectus was bluntly. The posterior rectus was visualized. An 0 Vicryl pursestring was placed. A small opening in the posterior rectus fascia and peritoneum took place using a Metzenbaum scissors. There were no adhesions to the suture that was placed. The pigtail catheter was advanced into the pelvis over a stylette. No resistance was met. The inner cuff was secured to the fascia using the 0 Vicryl pursestring that was placed. The catheter was tunneled to an exit site in the left lateral lower quadrant. The catheter was connected to the 1 L bag of saline and approximated 800 mL of saline was easily introduced into the peritoneal cavity. The fluid was then allowed to evacuate. The majority of the fluid was returned. The anterior rectus fascia was then reapproximated using a running 0 Vicryl stitch. The subcutaneous tissues reprepped using 3-0 Vicryl sutures and the skin using 4-0 Monocryl sutures. The outpatient dialysis adapter was applied to the end of the catheter. Sterile dressings were then applied after skin glue was placed over the incision. DISPOSITION: Stable to recovery room
[2022-06-20 14:01] VITALS: TEMP 98.2
[2022-06-20] MEDS: fentaNYL (PF) 50 MCG/ML 2 ML AMP IV PRN ×3 (14:15→14:31)
[2022-06-20 16:01] VITALS: BP 158/70; PULSE 80; RESP 16
== END 2022-06-20 15:59 | disposition home or self-care (01) ==
LOC: OR 11:16
PROVIDERS: ATTEND Surgery
DX: N19 Unspecified kidney failure (principal)
CPT/HCPCS: 49421; C1752; J2250; J1100; J0690; J2405; J3010; J2370; J2704; J2001

== ENCOUNTER → 2022-08-06 | Outpatient (CLI) | payer BC ==
[2022-08-06 10:27] LABS: Basophils # (A) 0.06 X 10*3/uL (0.00-0.10); Basophils % (A) 1.2 %; Eosinophils # (A) 0.31 X 10*3/uL (0.04-0.35); Eosinophils % (A) 6.4 %; HGB 10.5 g/dL (13.0-17.0); Immature Grans, Automated 0.2 %; Lymphocytes # (A) 0.76 X 10*3/uL (0.90-5.00); Lymphocytes % (A) 15.7 %; MCH 31.2 pg (27.0-32.0); MCHC 33.9 g/dL (32.0-37.0); Monocytes # (A) 0.37 X 10*3/uL (0.20-1.00); Monocytes % (A) 7.6 %; NRBC Per 100 WBC 0 /100 WBCS (0.0-0.0); Neutrophils # (A) 3.33 X 10*3/uL (1.80-7.70); Neutrophils % (A) 68.9 %; Platelet Count 151 X 10*3/uL (140-440); RBC 3.37 X 10*6/uL (4.40-5.60); RDW 13.1 % (11.5-14.5); WBC 4.84 X 10*3/uL (4.50-10.00)
[2022-08-06 10:45] LABS: ALT 17 U/L (10-49); AST 20 U/L (14-35); Albumin 3.9 g/dL (3.8-4.9); Albumin/Globulin Ratio 1.78 (1.60-3.17); Alkaline Phosphatase 65 U/L (41-126); Bilirubin, Conjugated <0.20 mg/dL (0.20-0.40); Globulin 2.2 g/dL (1.6-3.3); Total Protein 6.1 g/dL (6.2-8.2)
[2022-08-06 11:08] LABS: Hepatitis B Surface Antibody Reactive (Nonreactive)
[2022-08-06 11:12] LABS: Hepatitis B Core IgM Nonreactive (Nonreactive); Hepatitis B Surface Antigen Nonreactive (Nonreactive); Hepatitis C IgG Antibody Nonreactive (Nonreactive)
[2022-08-07 06:06] LABS: Toxoplasma Antibody (IgG) <3.0 IU/mL (<7.2)
[2022-08-07 06:17] LABS: Herpes simplex I and/or II IgM 0.15 INDEX (<=0.90); Herpes simplex IgG I Ab 0.12 (< or = 0.90); Herpes simplex IgG II Ab 0.18 (< or = 0.90)
== END | disposition home or self-care (01) ==
LOC: LABWHC1 07:32
PROVIDERS: ATTEND Internal Medicine Nephrology
DX: Z01.812 Encounter for preprocedural laboratory examination (principal)
CPT/HCPCS: 36415; 80076; 85025; 86644; 86664; 86694; 86695; 86696; 86705; 86706; 86777; 86803; 87340; 87390; 93005

== ENCOUNTER → 2023-06-28 | Outpatient (CLI) | payer BC ==
[2023-06-28 10:47] LABS: Appearance,Urine Clear (Clear); Bilirubin,Urine Negative (Negative); Blood,Urine Trace (Negative); Color,Urine Light Yellow; Glucose,Urine (UA) Negative (Negative); Ketones,Urine Negative (Negative); Leukocyte Esterase,Urine Negative (Negative); Mucus,Urine Rare /hpf; Nitrite,Urine Negative (Negative); PH, Urine 5.5 (5.0-8.0); Protein,Urine 1+ (Negative); RBC,Urine 1 /hpf (0-5); Specific Gravity,Urine 1.023 (1.001-1.035); Urobilinogen,Urine <2.0 mg/dL (<2.0); WBC,Urine 1 /hpf (0-5)
[2023-06-28 10:56] LABS: Creatinine,Urine Random 181.7 mg/dL; Protein/Creatinine Ratio,Urine 0.325
[2023-06-28 14:10] LABS: Albumin 4.7 d/dL (3.8-4.9); BUN/Creat Ratio 24.53 Ratio (12.00-20.00); Blood Urea Nitrogen 36.8 mg/dL (9.0-27.0); Calcium 10.7 mg/dL (8.7-10.3); Carbon Dioxide 21.7 mmol/L (21.6-31.8); Chloride 104 mmol/L (96-109); Glucose 100 mg/dL (70-110); Phosphorus 2.2 mg/dL (2.4-5.1); Potassium 4.9 mmol/L (3.5-5.5); Sodium 136 mmol/L (135-145)
[2023-06-28 14:12] LABS: Basophils # (A) 0.05 X 10*3/uL (0.00-0.10); Basophils % (A) 1.5 %; Eosinophils # (A) 0.07 X 10*3/uL (0.04-0.35); HCT 41.6 % (39.6-50.0); Lymphocytes # (A) 0.29 X 10*3/uL (0.90-5.00); Lymphocytes % (A) 8.5 %; MCH 30.4 pg (27.0-32.0); MCHC 33.7 d/dL (32.0-37.0); MCV 90.4 FL (80.0-97.0); Mean Platelet Volume 10.3 FL (9.5-12.2); Monocytes # (A) 0.54 X 10*3/uL (0.20-1.00); Monocytes % (A) 15.8 %; NRBC Per 100 WBC 0 X 10*3/uL (0.00-0.01); Neutrophils # (A) 2.45 X 10*3/uL (1.80-7.70); Neutrophils % (A) 71.6 %; Platelet Count 186 X 10*3/uL (140-440); RDW 12.7 % (11.5-14.5); WBC 3.42 X 10*3/uL (4.50-10.00)
== END | disposition home or self-care (01) ==
LOC: LABWHC1 08:33
PROVIDERS: ATTEND Internal Medicine Nephrology
DX: D84.9 Immunodeficiency, unspecified (principal); Z94.0 Kidney transplant status
CPT/HCPCS: 36415; 80069; 81001; 82043; 82570; 84156; 85025

== ENCOUNTER → 2023-08-14 | Outpatient (CLI) | payer BC ==
[2023-08-14 08:02] LABS: Ionized Calcium 5.6 mg/dL (4.5-5.3)
[2023-08-14 08:21] LABS: ALT 22 U/L (4-49); AST 23 U/L (17-59); African American GFR (CKD) 56 (>60 ml/min/1.73 sqM); Albumin 4.3 g/dL (3.5-5.0); Albumin/Globulin Ratio 1.8; Alkaline Phosphatase 77 U/L (38-126); Anion Gap 8 mmol/L; Blood Urea Nitrogen 44 mg/dL (9-20); Calcium 10.1 mg/dL (8.4-10.2); Carbon Dioxide 24 mmol/L (22-30); Chloride 103 mmol/L (98-107); Globulin 2.4 g/dL; Glucose 94 mg/dL (74-99); Non-African American GFR(CKD) 49 (>60 ml/min/1.73 sqM); Phosphorus 3.4 mg/dL (2.5-4.5); Potassium 4.8 mmol/L (3.5-5.1); Sodium 135 mmol/L (137-145); Total Bilirubin 0.6 mg/dL (0.2-1.3); Total Protein 6.7 g/dL (6.3-8.2)
[2023-08-14 09:11] LABS: Creatinine,Urine Random 144.6 mg/dL; Protein/Creatinine Ratio,Urine 0.055
[2023-08-14 11:11] LABS: Basophils # (A) 0.04 X 10*3/uL (0.00-0.10); Basophils % (A) 1.3 %; Eosinophils # (A) 0.06 X 10*3/uL (0.04-0.35); Eosinophils % (A) 1.9 %; HCT 38.2 % (39.6-50.0); HGB 12.6 g/dL (13.0-17.0); Lymphocytes # (A) 0.35 X 10*3/uL (0.90-5.00); Lymphocytes % (A) 11.3 %; MCH 30.2 pg (27.0-32.0); MCV 91.6 FL (80.0-97.0); Mean Platelet Volume 10.4 FL (9.5-12.2); Monocytes # (A) 0.59 X 10*3/uL (0.20-1.00); NRBC Per 100 WBC 0 X 10*3/uL (0.00-0.01); Neutrophils # (A) 2.06 X 10*3/uL (1.80-7.70); Neutrophils % (A) 66.2 %; Platelet Count 192 X 10*3/uL (140-440); RBC 4.17 X 10*6/uL (4.40-5.60); RDW 12.4 % (11.5-14.5); WBC 3.11 X 10*3/uL (4.50-10.00)
[2023-08-14 13:44] LABS: Microalbumin Creatinine Ratio <9 mg/g Cr (0-30)
[2023-08-14 14:38] LABS: Appearance,Urine Clear (Clear); Bilirubin,Urine Negative (Negative); Blood,Urine Negative (Negative); Color,Urine Yellow (Yellow); Ketones,Urine Negative (Negative); Nitrite,Urine Negative (Negative); Specific Gravity,Urine 1.021 (1.001-1.030); Urobilinogen,Urine 0.2 E.U./DL
[2023-08-14 16:07] LABS: Chol/HDL Ratio 3.14 Ratio; LDL Cholesterol,Calculated 103.7 mg/dL (0.0-131.0); VLDL Calculation 19.04 mg/dL (5.00-40.00)
== END | disposition home or self-care (01) ==
LOC: LABWHC1 06:51
PROVIDERS: ATTEND Internal Medicine
DX: E78.5 Hyperlipidemia, unspecified (principal); N05.1 Unspecified nephritic syndrome with focal and segmental glomerular lesions
CPT/HCPCS: 36415; 80053; 80061; 80069; 81003; 82043; 82330; 82570; 84156; 84443; 85025

== ENCOUNTER → 2023-09-22 | Outpatient (CLI) | payer BC ==
[2023-09-22 20:51] LABS: ALT 179 U/L (10-49); AST 109 U/L (14-35); Albumin 4.4 g/dL (3.8-4.9); Albumin/Globulin Ratio 1.91 Ratio (1.60-3.17); Alkaline Phosphatase 103 U/L (41-126); Bilirubin, Conjugated <0.20 mg/dL (0.20-0.40); Bilirubin,Unconjugated >0.20 mg/dL (0.20-1.00); Globulin 2.3 g/dL (1.6-3.3); Total Bilirubin 0.4 mg/dL (0.3-1.2); Total Protein 6.7 g/dL (6.2-8.2)
[2023-09-23 14:18] LABS: CMV DNA Qualitative DETECTED (Not detected); Log Cytomegalovirus 5.06 (<1.48)
[2023-09-23 14:29] LABS: BK Virus DNA PCR, Qualitative Not detected (Not detected); BKV DNA (PCR), Quant <125 Copies/mL (<125); LOG BKV Copies/mL <2.10 (<2.10)
== END | disposition home or self-care (01) ==
LOC: LABWHC1 15:40
PROVIDERS: ATTEND Internal Medicine Nephrology
DX: Z94.0 Kidney transplant status (principal)
CPT/HCPCS: 36415; 80076; 87497

== ENCOUNTER → 2023-11-08 | Outpatient (CLI) | payer BC | END | disposition home or self-care (01) | LOC: LABWHC1 09:15 | PROVIDERS: ATTEND Internal Medicine Nephrology | DX: Z53.9 Procedure and treatment not carried out, unspecified reason (principal) ==

== ENCOUNTER → 2023-12-04 | Outpatient (CLI) | payer BC | END | disposition home or self-care (01) | LOC: LABWHC1 09:30 | PROVIDERS: ATTEND Internal Medicine Nephrology | DX: Z94.0 Kidney transplant status (principal) ==

== ENCOUNTER → 2024-03-24 | Outpatient (CLI) | payer BC ==
[2024-03-24 10:15] LABS: Appearance,Urine Clear (Clear); Bilirubin,Urine Negative (Negative); Blood,Urine Negative (Negative); Color,Urine Yellow (Yellow); Ketones,Urine Negative (Negative); Nitrite,Urine Negative (Negative); PH, Urine 5.5; Specific Gravity,Urine 1.021 (1.001-1.030); Urobilinogen,Urine 0.2 E.U./DL
[2024-03-24 10:22] LABS: Creatinine,Urine Random 164.7 mg/dL; Protein/Creatinine Ratio,Urine 0.055
[2024-03-24 10:49] LABS: ALT 42 U/L (10-49); AST 31 U/L (14-35); Albumin 4.5 g/dL (3.8-4.9); Albumin/Globulin Ratio 2.05 Ratio (1.60-3.17); Alkaline Phosphatase 86 U/L (41-126); BUN/Creat Ratio 19.47 Ratio (12.00-20.00); Bilirubin, Conjugated <0.20 mg/dL (0.20-0.40); Bilirubin,Unconjugated >0.40 mg/dL (0.20-1.00); Blood Urea Nitrogen 29.2 mg/dL (9.0-27.0); Calcium 10.1 mg/dL (8.7-10.3); Carbon Dioxide 21.5 mmol/L (21.6-31.8); Chloride 104 mmol/L (96-109); Chol/HDL Ratio 3.69 Ratio; Globulin 2.2 g/dL (1.6-3.3); Glucose 91 mg/dL (70-110); LDL Cholesterol,Calculated 120.7 mg/dL (0.0-131.0); Phosphorus 2.1 mg/dL (2.4-5.1); Potassium 4.4 mmol/L (3.5-5.5); Sodium 137 mmol/L (135-145); Total Bilirubin 0.6 mg/dL (0.3-1.2); Total Protein 6.7 g/dL (6.2-8.2)
[2024-03-24 10:58] LABS: Microalbumin Creatinine Ratio <7 mg/g Cr (0-30)
[2024-03-24 10:59] LABS: Basophils # (A) 0.04 X 10*3/uL (0.00-0.10); Eosinophils # (A) 0.08 X 10*3/uL (0.04-0.35); Eosinophils % (A) 1.9 %; HCT 47.9 % (39.6-50.0); HGB 16.4 g/dL (13.0-17.0); Lymphocytes % (A) 38.3 %; MCHC 34.2 g/dL (32.0-37.0); MCV 84.8 FL (80.0-97.0); Monocytes # (A) 0.56 X 10*3/uL (0.20-1.00); Monocytes % (A) 13.4 %; NRBC Per 100 WBC 0 X 10*3/uL (0.00-0.01); Neutrophils # (A) 1.89 X 10*3/uL (1.80-7.70); Neutrophils % (A) 45.2 %; Platelet Count 148 X 10*3/uL (140-440); RBC 5.65 X 10*6/uL (4.40-5.60); RDW 13.2 % (11.5-14.5); WBC 4.18 X 10*3/uL (4.50-10.00)
[2024-03-25 10:37] LABS: CMV DNA (cp/mL) <76 Copies/mL (<76); CMV DNA Qualitative DETECTED (Not detected); CMV DNA, Quantitative <30 IU/mL (<30); Log Cytomegalovirus <1.48 (<1.48)
== END | disposition home or self-care (01) ==
LOC: LABWHC1 06:51
PROVIDERS: ATTEND Internal Medicine
DX: Z00.00 Encounter for general adult medical examination without abnormal findings (principal); R73.01 Impaired fasting glucose
CPT/HCPCS: 36415; 80061; 80069; 80076; 81003; 82043; 82570; 83036; 84156; 85025; 87497

== ENCOUNTER → 2024-04-30 | Outpatient (CLI) | payer BC | END | disposition home or self-care (01) | LOC: LABWHC1 07:03 | PROVIDERS: ATTEND Internal Medicine Nephrology | DX: Z53.9 Procedure and treatment not carried out, unspecified reason (principal) ==

== ENCOUNTER → 2024-08-25 | Outpatient (CLI) | payer BC ==
[2024-08-25 07:52] LABS: Protein/Creatinine Ratio,Urine 0.058
[2024-08-25 10:32] LABS: Appearance,Urine Cloudy (Clear); Bilirubin,Urine Negative (Negative); Blood,Urine Trace (Negative); Color,Urine Yellow (Yellow); Ketones,Urine Negative (Negative); Nitrite,Urine Negative (Negative); PH, Urine 5.5; Specific Gravity,Urine 1.022 (1.001-1.030); Urobilinogen,Urine 0.2 E.U./DL
[2024-08-25 10:48] LABS: Chol/HDL Ratio 3.61 Ratio; LDL Cholesterol,Calculated 153.5 mg/dL (0.0-131.0); Phosphorus 2.4 mg/dL (2.4-5.1); VLDL Calculation 19.34 mg/dL (5.00-40.00)
[2024-08-25 10:54] LABS: Basophils # (A) 0.03 X 10*3/uL (0.00-0.10); Basophils % (A) 0.7 %; Eosinophils # (A) 0.06 X 10*3/uL (0.04-0.35); Eosinophils % (A) 1.4 %; HCT 54.8 % (39.6-50.0); HGB 18.2 g/dL (13.0-17.0); Lymphocytes # (A) 1.18 X 10*3/uL (0.90-5.00); Lymphocytes % (A) 27.4 %; MCH 28.3 pg (27.0-32.0); MCHC 33.2 g/dL (32.0-37.0); MCV 85.4 FL (80.0-97.0); Mean Platelet Volume 10.1 FL (9.5-12.2); Monocytes # (A) 0.55 X 10*3/uL (0.20-1.00); Monocytes % (A) 12.8 %; NRBC Per 100 WBC 0 X 10*3/uL (0.00-0.01); Neutrophils # (A) 2.47 X 10*3/uL (1.80-7.70); Neutrophils % (A) 57.5 %; Platelet Count 164 X 10*3/uL (140-440); RBC 6.42 X 10*6/uL (4.40-5.60); RDW 15.1 % (11.5-14.5)
[2024-08-25 11:16] LABS: Bacteria,Urine None Seen (None Seen); Calcium Oxalate Crystals,Urine Present (None Seen)
[2024-08-25 13:56] LABS: ALT 41 U/L (10-49); AST 30 U/L (14-35); Albumin 4.6 g/dL (3.8-4.9); Albumin/Globulin Ratio 1.77 Ratio (1.60-3.17); Alkaline Phosphatase 93 U/L (41-126); BUN/Creat Ratio 23.67 Ratio (12.00-20.00); Bilirubin, Conjugated 0.34 mg/dL (0.20-0.40); Bilirubin,Unconjugated 0.56 mg/dL (0.20-1.00); Blood Urea Nitrogen 35.5 mg/dL (9.0-27.0); Calcium 10.5 mg/dL (8.7-10.3); Carbon Dioxide 23.6 mmol/L (21.6-31.8); Chloride 101 mmol/L (96-109); Globulin 2.6 g/dL (1.6-3.3); Glucose 93 mg/dL (70-110); Potassium 5.1 mmol/L (3.5-5.5); Sodium 135 mmol/L (135-145); Total Bilirubin 0.9 mg/dL (0.3-1.2); Total Protein 7.2 g/dL (6.2-8.2)
[2024-08-26 09:33] LABS: CMV DNA (cp/mL) <76 Copies/mL (<76); CMV DNA Qualitative Not detected (Not detected); CMV DNA, Quantitative <30 IU/mL (<30); Log Cytomegalovirus <1.48 (<1.48)
== END | disposition home or self-care (01) ==
LOC: LABWHC1 06:56
PROVIDERS: ATTEND Internal Medicine
DX: E78.5 Hyperlipidemia, unspecified (principal); R73.01 Impaired fasting glucose
CPT/HCPCS: 36415; 80061; 80069; 80076; 81001; 82043; 82570; 83036; 84156; 85025; 87497

== ENCOUNTER → 2024-09-09 | Outpatient (CLI) | payer BC, MEDICARE ==
--- NOTE | 2024-09-09 16:04 | US ---
EXAMINATION TYPE: US kidneys/renal and bladder DATE OF EXAM: 09/09/2024 COMPARISON: Renal ultrasound 11/03/2015 CLINICAL INDICATION: Male, 49 years old with history of D75.1 SECONDARY POLYCYTHEMIA; RT TX KIDNEY RL Q TECHNIQUE: Grayscale imaging of the bilateral kidneys and urinary bladder: FINDINGS: EXAM MEASUREMENTS: Right Kidney: 8.3x4.8x3.7 cm Left Kidney: 7.2x4.0x3.3 cm RT TX KIDNEY RLQ: 14.8x5.6x4.7cm Right Kidney: Atrophic [place] kidney Left Kidney: Atrophic [place] kidney RT TX KIDNEY RLQ: No hydronephrosis or masses visualized Bladder: wnl Bilateral Jets seen: No 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 No hydronephrosis or mass identified. No shadowing calculi. Right lower quadrant transplant kidney appears unremarkable without evidence of hydronephrosis, solid mass, shadowing calculus. Normal color flow to the transpl ant kidney. The urinary bladder is unremarkable with anechoic appearance. IMPRESSION: 1. No hydronephrosis or nephrolithiasis. 2. 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 3. Unremarkable appearance of the right lower quadrant transplant kidney. [facility] edgardo Foster, , 09/09/2024 4:02 PM
== END | disposition home or self-care (01) ==
LOC: RADUSWWP 15:11
PROVIDERS: ATTEND Internal Medicine Nephrology
DX: D75.1 Secondary polycythemia (principal); N26.1 Atrophy of kidney (terminal); Z94.0 Kidney transplant status
CPT/HCPCS: 76770

== ENCOUNTER → 2024-11-16 | Outpatient (CLI) | payer BC ==
[2024-11-16 09:02] LABS: Creatinine,Urine Random 93.7 mg/dL; Protein/Creatinine Ratio,Urine 0.085
[2024-11-16 10:55] LABS: Appearance,Urine Clear (Clear); Bilirubin,Urine Negative (Negative); Blood,Urine Negative (Negative); Color,Urine Yellow (Yellow); Ketones,Urine Negative (Negative); Nitrite,Urine Negative (Negative); Specific Gravity,Urine 1.016 (1.001-1.030); Urobilinogen,Urine 0.2 E.U./DL
[2024-11-16 12:48] LABS: Basophils # (A) 0.05 X 10*3/uL (0.00-0.10); Basophils % (A) 0.9 %; Eosinophils # (A) 0.32 X 10*3/uL (0.04-0.35); Eosinophils % (A) 5.7 %; HCT 46.3 % (39.6-50.0); HGB 15.5 g/dL (13.0-17.0); Lymphocytes # (A) 1.84 X 10*3/uL (0.90-5.00); MCH 29.1 pg (27.0-32.0); MCHC 33.5 g/dL (32.0-37.0); Mean Platelet Volume 10.4 FL (9.5-12.2); Monocytes # (A) 0.87 X 10*3/uL (0.20-1.00); Monocytes % (A) 15.6 %; NRBC Per 100 WBC 0 X 10*3/uL (0.00-0.01); Neutrophils # (A) 2.48 X 10*3/uL (1.80-7.70); Neutrophils % (A) 44.6 %; Platelet Count 163 X 10*3/uL (140-440); RBC 5.32 X 10*6/uL (4.40-5.60); RDW 13.8 % (11.5-14.5); WBC 5.57 X 10*3/uL (4.50-10.00)
[2024-11-16 13:12] LABS: Phosphorus 2.4 mg/dL (2.4-5.1)
[2024-11-16 13:13] LABS: Albumin 4.4 g/dL (3.8-4.9); BUN/Creat Ratio 17.71 Ratio (12.00-20.00); Blood Urea Nitrogen 24.8 mg/dL (9.0-27.0); Calcium 10.1 mg/dL (8.7-10.3); Carbon Dioxide 24.9 mmol/L (21.6-31.8); Chloride 102 mmol/L (96-109); Glucose 89 mg/dL (70-110); Potassium 4.7 mmol/L (3.5-5.5); Sodium 138 mmol/L (135-145)
[2024-11-17 10:29] LABS: Microalbumin Creatinine Ratio <11 mg/g Cr (0-30)
== END | disposition home or self-care (01) ==
LOC: LABWHC1 07:05
PROVIDERS: ATTEND Internal Medicine Nephrology
DX: Z94.0 Kidney transplant status (principal)
CPT/HCPCS: 36415; 80069; 81003; 82043; 82570; 84156; 85025; 86644; 86645

== ENCOUNTER → 2025-03-09 | Outpatient (CLI) | payer BC ==
[2025-03-09 10:58] LABS: Cholesterol 151.00 mg/dL (0.00-200.00); HDL Cholesterol 59.70 mg/dL (40.00-60.00); LDL Cholesterol,Calculated 74.2 mg/dL (0.0-131.0); PSA Annual Screen 0.865 ng/mL (0.000-4.000); Triglycerides 85.60 mg/dL (0.00-149.00); VLDL Calculation 17.12 mg/dL (5.00-40.00)
== END | disposition home or self-care (01) ==
LOC: LABWHC1 07:02
PROVIDERS: ATTEND Internal Medicine
DX: Z00.00 Encounter for general adult medical examination without abnormal findings (principal); Z12.5 Encounter for screening for malignant neoplasm of prostate; R73.01 Impaired fasting glucose
CPT/HCPCS: 80061; 84443; 83036; 36415; G0103